=== PATIENT | male | born 1955 | race Two or more races ===

== ENCOUNTER 2017-07-06 06:55 | Inpatient (IN) | payer OTHER ==
[2017-07-06] MEDS ORDERED: ASPIRIN 81 MG PO STA (07:30)
[2017-07-06] MEDS ORDERED: NITROGLYCERIN OINT 1 INCH/GM PACKET TOPICAL STA (07:30)
--- NOTE | 2017-07-06 07:35 | ED ---
General Adult HPI - General Chief complaint: Chest Pain Stated complaint: Chest pain Time Seen by Provider: 07/06/17 07:00 Source: patient, RN notes reviewed Mode of arrival: wheelchair Limitations: no limitations - History of Present Illness Initial comments: This is a 61-year-old male with no significant past medical history. Patient states over the last week he has had 6 episodes of chest pain mostly associated with some exertion. Patient states episodes are usually only a few minutes but today's episode lasted about 10 minutes. Patient denies any radiation of the pain. Patient states the pain is centralized in his chest is a swallowed too much of something. Patient denies any difficulty swallowing. Patient denies any shortness of breath per patient denies any diaphoresis per patient denies any nausea. Patient denies any abdominal pain patient denies vomiting diarrhea. Patient denies any recent fever chills or cough. Patient denies any leg swelling. Patient denies any calf pain. Patient states been working out fairly aggressively since 2002. Patient states since the chest pain began he has worked out and not had any problems it usually occurred during the warm phases of his workout. Patient denies any family history of heart problems. - Related Data Home Medications Medication Instructions Recorded Confirmed Ibuprofen [Motrin Ib] 600 mg PO ONCE PRN 07/06/17 07/06/17 Allergies Allergy/AdvReac Type Severity Reaction Status Date / Time No Known Allergies Allergy Verified 07/06/17 07:26 Review of Systems ROS Statement: Those systems with pertinent positive or pertinent negative responses have been documented in the HPI. ROS Other: All systems not noted in ROS Statement are negative. Past Medical History Past Medical History: No Reported History History of Any Multi-Drug Resistant Organisms: None Reported Past Surgical History: Tonsillectomy Past Psychological History: No Psychological Hx Reported Smoking Status: Never smoker Past Alcohol Use History: Occasional Past Drug Use History: None Reported General Exam - General Exam Comments Initial Comments: GENERAL: Patient is well-developed and well-nourished. Patient is nontoxic and well- hydrated and is in no acute distress. ENT: Neck is soft and supple. No significant lymphadenopathy is noted. Oropharynx is clear. Moist mucous membranes. Neck has full range of motion without eliciting any pain. EYES: The sclera were anicteric and conjunctiva were pink and moist. Extraocular movements were intact and pupils were equal round and reactive to light. Eyelids were unremarkable. PULMONARY: Unlabored respirations. Good breath sounds bilaterally. No audible rales rhonchi or wheezing was noted. CARDIOVASCULAR: There is a regular rate and rhythm without any murmurs gallops or rubs. ABDOMEN: Soft and nontender with normal bowel sounds. No palpable organomegaly was noted. There is no palpable pulsatile mass. SKIN: Skin is clear with no lesions or rashes and otherwise unremarkable. NEUROLOGIC: Patient is alert and oriented x3. Cranial nerves II through XII are grossly intact. Motor and sensory are also intact. Normal speech, volume and content. Symmetrical smile. MUSCULOSKELETAL: Normal extremities with adequate strength and full range of motion. No lower extremity swelling or edema. No calf tenderness. LYMPHATICS: No significant lymphadenopathy is noted PSYCHIATRIC: Normal psychiatric evaluation. Normal interpersonal interactions appears functionally intact in deals appropriately with others. No signs of depression. No signs of anxiety. Limitations: no limitations Course Vital Signs 07/06/17 07/06/17 06:57 08:23 Temperature 98.2 F Pulse Rate 60 56 L Respiratory 18 16 Rate Blood Pressure 159/80 141/83 O2 Sat by Pulse 98 96 Oximetry Medical Decision Making - Medical Decision Making EKG shows sinus bradycardia 55 bpm ID interval is 176 dresses 90 QT interval 420 QTC is 41 per patient's EKG shows no ST segment elevation or depression. Patient has T-wave inversions in V1 and V2. Chest x-ray shows no acute abnormality. - Lab Data Result diagrams: 07/06/17 07:30 07/06/17 07:30 Lab Results 07/06/17 07/06/17 07/06/17 Range/Units 07:30 07:30 07:30 WBC 3.7 L (3.8-10.6) k/uL RBC 5.17 (4.30-5.90) m/uL Hgb 14.9 (13.0-17.5) gm/dL Hct 46.2 (39.0-53.0) % MCV 89.3 (80.0-100.0) fL MCH 28.9 (25.0-35.0) pg MCHC 32.3 (31.0-37.0) g/dL RDW 13.0 (11.5-15.5) % Plt Count 155 (150-450) k/uL Neutrophils % 54 % Lymphocytes % 33 % Monocytes % 8 % Eosinophils % 1 % Basophils % 0 % Neutrophils # 2.0 (1.3-7.7) k/uL Lymphocytes # 1.2 (1.0-4.8) k/uL Monocytes # 0.3 (0-1.0) k/uL Eosinophils # 0.0 (0-0.7) k/uL Basophils # 0.0 (0-0.2) k/uL PT (9.0-12.0) sec INR (<1.2) APTT (22.0-30.0) sec Sodium 146 H (137-145) mmol/L Potassium 5.3 H (3.5-5.1) mmol/L Chloride 107 (98-107) mmol/L Carbon Dioxide 30 (22-30) mmol/L Anion Gap 9 mmol/L BUN 14 (9-20) mg/dL Creatinine 0.77 (0.66-1.25) mg/dL Est GFR (CKD-EPI)AfAm >90 (>60 ml/min/1.73 sqM) Est GFR (CKD-EPI)NonAf >90 (>60 ml/min/1.73 sqM) Glucose 80 (74-99) mg/dL Calcium 9.7 (8.4-10.2) mg/dL Magnesium 1.9 (1.6-2.3) mg/dL Total Bilirubin 0.8 (0.2-1.3) mg/dL AST 29 (17-59) U/L ALT 39 (21-72) U/L Alkaline Phosphatase 49 (38-126) U/L Total Creatine Kinase 96 (55-170) U/L CK-MB (CK-2) 1.0 (0.0-2.4) ng/mL CK-MB (CK-2) Rel Index 1.0 Troponin I 0.022 (0.000-0.034) ng/mL Total Protein 6.6 (6.3-8.2) g/dL Albumin 4.0 (3.5-5.0) g/dL 07/06/17 Range/Units 07:30 WBC (3.8-10.6) k/uL RBC (4.30-5.90) m/uL Hgb (13.0-17.5) gm/dL Hct (39.0-53.0) % MCV (80.0-100.0) fL MCH (25.0-35.0) pg MCHC (31.0-37.0) g/dL RDW (11.5-15.5) % Plt Count (150-450) k/uL Neutrophils % % Lymphocytes % % Monocytes % % Eosinophils % % Basophils % % Neutrophils # (1.3-7.7) k/uL Lymphocytes # (1.0-4.8) k/uL Monocytes # (0-1.0) k/uL Eosinophils # (0-0.7) k/uL Basophils # (0-0.2) k/uL PT 10.6 (9.0-12.0) sec INR 1.1 (<1.2) APTT 26.3 (22.0-30.0) sec Sodium (137-145) mmol/L Potassium (3.5-5.1) mmol/L Chloride (98-107) mmol/L Carbon Dioxide (22-30) mmol/L Anion Gap mmol/L BUN (9-20) mg/dL Creatinine (0.66-1.25) mg/dL Est GFR (CKD-EPI)AfAm (>60 ml/min/1.73 sqM) Est GFR (CKD-EPI)NonAf (>60 ml/min/1.73 sqM) Glucose (74-99) mg/dL Calcium (8.4-10.2) mg/dL Magnesium (1.6-2.3) mg/dL Total Bilirubin (0.2-1.3) mg/dL AST (17-59) U/L ALT (21-72) U/L Alkaline Phosphatase (38-126) U/L Total Creatine Kinase (55-170) U/L CK-MB (CK-2) (0.0-2.4) ng/mL CK-MB (CK-2) Rel Index Troponin I (0.000-0.034) ng/mL Total Protein (6.3-8.2) g/dL Albumin (3.5-5.0) g/dL Disposition Clinical Impression: Chest pain Disposition: ADMITTED IP TO THIS HOSP Referrals: Lucas Swan MD [Primary Care Provider] - 1-2 days Time of Disposition: 08:59
[2017-07-06 07:53] LABS: Basophils % (A) 0 %; Eosinophils % (A) 1 %; HCT 46.2 % (39.0-53.0); HGB 14.9 gm/dL (13.0-17.5); Lymphocytes # (A) 1.2 k/uL (1.0-4.8); Lymphocytes % (A) 33 %; MCH 28.9 pg (25.0-35.0); MCHC 32.3 g/dL (31.0-37.0); MCV 89.3 fL (80.0-100.0); Mean Platelet Volume 9.2; Monocytes # (A) 0.3 k/uL (0-1.0); Monocytes % (A) 8 %; Neutrophils % (A) 54 %; Platelet Count 155 k/uL (150-450); RBC 5.17 m/uL (4.30-5.90); WBC 3.7 k/uL (3.8-10.6)
--- NOTE | 2017-07-06 08:03 | XR ---
EXAMINATION TYPE: XR chest 2V DATE OF EXAM: 07/06/2017 COMPARISON: NONE HISTORY: Chest pain TECHNIQUE: Frontal and lateral views of the chest are obtained. FINDINGS: There is no focal air space opacity, pleural effusion, or pneumothorax seen. The cardiac silhouette size is within normal limits. The osseous structures are intact. There are overlying car diac leads. IMPRESSION: No acute cardiopulmonary process.
[2017-07-06 08:04] LABS: INR 1.1 (<1.2); Partial Thromboplastin Time 26.3 sec (22.0-30.0); Prothrombin Time 10.6 sec (9.0-12.0)
[2017-07-06 08:07] LABS: ALT 39 U/L (21-72); AST 29 U/L (17-59); Alkaline Phosphatase 49 U/L (38-126); Anion Gap 9 mmol/L; Blood Urea Nitrogen 14 mg/dL (9-20); Calcium 9.7 mg/dL (8.4-10.2); Carbon Dioxide 30 mmol/L (22-30); Chloride 107 mmol/L (98-107); Glucose 80 mg/dL (74-99); Magnesium 1.9 mg/dL (1.6-2.3); Potassium 5.3 mmol/L (3.5-5.1); Sodium 146 mmol/L (137-145); Total Bilirubin 0.8 mg/dL (0.2-1.3); Total Protein 6.6 g/dL (6.3-8.2)
[2017-07-06 08:33] LABS: Troponin I 0.022 ng/mL (0.000-0.034)
[2017-07-06] MEDS ORDERED: NITROGLYCERIN SL TABS 0.4 MG TAB SUBLINGUAL PRN (09:00)
[2017-07-06] MEDS ORDERED: ALPRAZolam 0.5 MG TAB PO PRN (12:26)
[2017-07-06] MEDS ORDERED: ALPRAZolam 0.25 MG TAB PO PRN (12:26)
[2017-07-06] MEDS ORDERED: ATORVASTATIN 80 MG TAB PO STA (12:26)
[2017-07-06] MEDS ORDERED: SODIUM CHLORIDE 0.9% 1,000 ML in EMPTY BAG 1 BAG IV ONE (12:26)
[2017-07-06] MEDS ORDERED: HEPARIN SODIUM,PORCINE 5,000 UNIT/ML 1 ML VIAL IV PRN (12:29)
[2017-07-06] MEDS ORDERED: HEPARIN SODIUM,PORCINE 5,000 UNIT/ML 1 ML VIAL IV ONE (12:29)
[2017-07-06 13:26] LABS: Creatine Kinase MB 0.8 ng/mL (0.0-2.4); Troponin I 0.02 ng/mL (0.000-0.034)
[2017-07-06] MEDS: HEPARIN SOD,PORK IN 0.45% NACL 25,000 UNIT in 0.45% NACL 1 500ML.BAG IV SCH ×2 (13:27→18:37)
[2017-07-06] MEDS: NITROGLYCERIN OINT 1 INCH/GM PACKET TOPICAL SCH ×2 (13:29→22:11)
--- NOTE | 2017-07-06 14:56 | CONS ---
CONSULTATION Daniel Costello is a 61-year-old gentleman without significant past medical history. He has a risk factor profile that is very low. He does not take any medications. Has no allergies. Exercises regularly. For the last 1 week, he is experiencing what he describes as a nondescript symptoms of some chest tightness that seem to come on in a random fashion. He calls this uncomfortable feeling in the chest. It came on with exercise when he was doing some warm up for his regular workout that he does. This happened a few days ago and again he had a recurrence of these symptoms and therefore he came into the hospital. He has had 5 to 6 episodes, mostly associated with activity, but the quality of the pain is very sharp, atypical, almost central location without much radiation. No diaphoresis. At other times, he has done workout without any symptoms. However, at the time of my evaluation, he is resting comfortably without symptoms. PAST MEDICAL HISTORY: Unremarkable for any major medical problems. MEDICATIONS: None. ALLERGIES: None. REVIEW OF SYSTEMS: Unremarkable for any major medical issues. LABORATORY DATA: Revealed that initial troponin is 0.022. His other labs are normal. Potassium is slightly elevated at 5.3. His EKG revealed a sinus mechanism with very minor nonspecific precordial ST and T abnormality. PHYSICAL EXAMINATION: Blood pressure is 140/70, pulse rate is 60 per minute, regular. HEENT: Unremarkable. Fundus was not examined by me. NECK: Supple. No JVD. I do not hear a carotid bruit. There is no thyromegaly. Heart exam reveals S1, S2 heard normally without a rub, murmur or gallop. Lungs are clear. Abdomen is soft, nontender. Lower extremities reveal normal pulses, no edema, central nervous system is normal. EKG revealed sinus mechanism with minor nonspecific Anterior ST-T changes. RECOMMENDATION: I am recommending coronary angiography to rule out any obstructive CAD in a patient with ongoing symptoms for 1 week, almost always associated with physical activity and equivocal troponin level. Rationale, risks, benefits, options related to coronary angiography. I explained to the patient and . They understand all details and wished to proceed with the procedure. Thank you very much for the consult. MMODL / IJN: [id number] / BRIAN
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
[2017-07-06] MEDS ORDERED: IV FLUID CONTINUATION 700 ML IV ONE (16:31)
[2017-07-06] MEDS ORDERED: HEPARIN SODIUM 1,000 UN/ML (10ML VL) ONE (16:32)
[2017-07-06] MEDS ORDERED: LIDOCAINE 2% INJ 20 MG/ML (20 ML MDV) ONE (16:32)
[2017-07-06] MEDS ORDERED: MIDAZOLAM 2 MG/2 ML VIAL ONE (16:32)
[2017-07-06] MEDS ORDERED: VERAPAMIL 2.5 MG/ML 2 ML AMP ONE (16:33)
[2017-07-06] MEDS ORDERED: MIDAZOLAM 2 MG/2 ML VIAL IV ONE (16:35)
[2017-07-06] MEDS ORDERED: diphenhydrAMINE 50 MG/ML 1 ML VIAL ONE (16:37)
[2017-07-06] MEDS ORDERED: diphenhydrAMINE 50 MG/ML 1 ML VIAL IVP ONE (16:37)
[2017-07-06] MEDS: VERAPAMIL SYRINGE (5 MG/10 ML) INTRAARTER ONE ×2 (16:38→17:05)
[2017-07-06] MEDS ORDERED: LIDOCAINE 2% INJ 20 MG/ML SQ ONE (16:38)
[2017-07-06] MEDS ORDERED: METOPROLOL TARTRATE 5 MG/5 ML VIAL IVP ONE ×2 (16:59→17:02)
[2017-07-06] MEDS ORDERED: NITROGLYCERIN SL TABS 0.4 MG TAB SUBLINGUAL ONE ×2 (17:00→17:02)
[2017-07-06] MEDS ORDERED: IOHEXOL 350 MG/ML (PER ML) 100ML BTL INJ ONE ×2 (17:02)
[2017-07-06] MEDS ORDERED: RX INFO: IV CONTRAST WAS GIVEN 1 EACH MISC MISCELLANE PRN (17:16)
[2017-07-06] MEDS ORDERED: SODIUM CHLORIDE 0.9% 1,000 ML IV SCH (17:30)
[2017-07-06] MEDS ORDERED: MD COMMUNICATION TO PHARMACY 1 EACH MISC PO ONE ×4 (17:49→18:16)
[2017-07-06 18:03] VITALS: TEMP 97
[2017-07-06] MEDS ORDERED: HEPARIN SODIUM,PORCINE 5,000 UNIT/ML 1 ML VIAL IV SCH (19:00)
[2017-07-06 19:03] LABS: Basophils % (A) 0 %; Eosinophils % (A) 0 %; HCT 46.6 % (39.0-53.0); Lymphocytes % (A) 17 %; MCH 28.5 pg (25.0-35.0); MCHC 32.2 g/dL (31.0-37.0); MCV 88.4 fL (80.0-100.0); Mean Platelet Volume 9.4; Monocytes # (A) 0.3 k/uL (0-1.0); Monocytes % (A) 5 %; Neutrophils # (A) 4.3 k/uL (1.3-7.7); Neutrophils % (A) 77 %; Platelet Count 154 k/uL (150-450); RBC 5.28 m/uL (4.30-5.90); RDW 12.9 % (11.5-15.5); WBC 5.6 k/uL (3.8-10.6)
[2017-07-06 19:06] VITALS: RESP 18
[2017-07-06 19:13] LABS: ALT 34 U/L (21-72); AST 27 U/L (17-59); Alkaline Phosphatase 51 U/L (38-126); Anion Gap 13 mmol/L; Blood Urea Nitrogen 10 mg/dL (9-20); Calcium 9.6 mg/dL (8.4-10.2); Carbon Dioxide 26 mmol/L (22-30); Chloride 104 mmol/L (98-107); Glucose 151 mg/dL (74-99); Magnesium 1.7 mg/dL (1.6-2.3); Potassium 4.4 mmol/L (3.5-5.1); Sodium 143 mmol/L (137-145); Total Bilirubin 0.9 mg/dL (0.2-1.3); Total Protein 6.5 g/dL (6.3-8.2)
[2017-07-06 19:14] LABS: INR 1.2 (<1.2); Partial Thromboplastin Time 26.9 sec (22.0-30.0); Prothrombin Time 11.2 sec (9.0-12.0)
[2017-07-06 19:34] LABS: Creatine Kinase MB 0.5 ng/mL (0.0-2.4); Troponin I 0.018 ng/mL (0.000-0.034)
--- NOTE | 2017-07-06 20:08 | CC ---
CARDIAC CATHETERIZATION REPORT DATE OF SERVICE: 07/06/2017. PROCEDURE: Left heart catheterization, coronary angiography and left ventriculography from right radial approach. PERFORMED BY: Dr. Rachel Joshi. Moderate conscious sedation time was 27 minutes. Patient was monitored closely and he was given Versed and Benadryl combination. CLINICAL INFORMATION: Mr. Daniel Costello is a 61-year-old gentleman who came into the hospital with a 6-day history of ongoing exertional chest discomfort with 1 episode of probably a rest pain, although it seems to be more exertional than rest. He did not have any significant troponin elevation. Troponin was equivocal. He had EKG changes in the anterior leads, very subtle with ST-T abnormality, raising the possibility of ischemia. He was heparinized and advised coronary angiography, given his presentation and recent change in symptoms. Patient is quite active and does do quite a bit of physical activity and does not have any major risk factors. He is not a smoker, does not have any family history of premature CAD, has no hypertension or diabetes and does not take medications. PROCEDURE NOTE: Under local anesthesia and strict aseptic precautions, a 6-Turkish introducer was placed in the right radial artery. An Ultimate 1 catheter was used to perform selective coronary angiography of the left coronary artery. A standard 5-Turkish right Madhu catheter was used to perform selective coronary angiography of the right coronary artery. A pigtail catheter was used to check LV pressures. An LV-gram was performed in 30-degree AGUSTIN projection. The sheath was taken out and a TR band applied as per protocol. The saturation in the fingers of the right hand was 95%. Patient tolerated procedure well without complication. He also received heparin intravenously and also received heparin prior to the procedure. CARDIAC CATHETERIZATION FINDINGS: The left ventricle end-diastolic pressure was about 20 mmHg without any gradient across the aortic valve. CORONARY ANGIOGRAPHY FINDINGS: Right coronary artery: A very super dominant vessel, has a proximal 70% stenosis, eccentric and an almost ulcerated lesion distally. The caliber of the vessel improves and bifurcates into large PDA and PLV. RCA is a super dominant vessel with 70% proximal lesion. Left main coronary artery: This vessel has about a 40% distal lesion just before bifurcation. This bifurcates into LAD and circumflex. Left anterior descending coronary artery: This is a fair-caliber vessel, very proximally, gives off a diagonal branch which is small and then there is a 95% stenosis and just at the end of the stenotic segment, a major diagonal comes off and the LAD continues with moderate disease and then the caliber improves and it runs all the way to the apex to supply the inferoapical portion of left ventricle. The LAD and diagonal are both graftable vessels. The origin of the diagonal may also have some disease in it. Left posterior circumflex coronary artery: Technically nondominant vessel gives a single obtuse marginal. No significant disease, supplies a fair amount of myocardium. Left ventriculogram: This was performed in 30-degree AGUSTIN projection, revealed a left ventricle which is of normal size with excellent contractility. No mitral regurgitation. Ejection fraction is at least 65%. FINAL IMPRESSION: This patient has significant disease involving the proximal left anterior descending and also involving a major diagonal branch. This is a 95% stenosis. Right coronary artery has a 70% eccentric proximal stenosis of very super dominant vessel. Normal left ventricular function with elevated filling pressures. RECOMMENDATIONS: I am recommending aortocoronary bypass surgery to be performed urgently. The findings were reviewed with the patient. Films were reviewed with the patient, his and family members. His son, who is an anesthesiologist, also reviewed the pictures. The patient's son is considering transfer to [facility], where he works. For now, I will place him on IV heparin drip after the TR band is removed and also will place him on some statin, nitrates and beta blockers. I am recommending surgery in the next 48 hours. I also spoke to Dr. Garcia, who will be seeing the patient in the morning regarding surgery. MMODL / IJN: [id number] /
--- NOTE | 2017-07-06 20:14 | LTR ---
Dear Dr. Anaya: Thank you for the opportunity to participate in the care of Mr. Daniel Costello. Please find enclosed mid detailed cardiac cath report for your records. I am recommending aortocoronary bypass surgery for this patient. The patient's son is an anesthesiologist who is considering transfer to [facility]. We will keep you posted regarding further developments. Thank you for your referral and please call for questions. With kind regards. Sincerely, JOLANTA / CIERAN: [id number] /
--- NOTE | 2017-07-06 20:59 | US ---
EXAMINATION TYPE: US carotid duplex BILAT DATE OF EXAM: 07/06/2017 COMPARISON: NONE CLINICAL HISTORY: pre op CABG. Pre op CABG EXAM MEASUREMENTS: RIGHT: Peak Systolic Velocity (PSV) cm/sec ----- Right CCA: 85.3 ----- Right ICA: 74.3 ----- Right ECA: 117.9 ICA/CCA ratio: 0.9 RIGHT: End Diastole cm/sec ----- Right CCA: 18.2 ----- Right ICA: 24.2 ----- Right ECA: 15.3 LEFT: Peak Systolic Velocity (PSV) cm/sec ----- Left CCA: 77.1 ----- Left ICA: 91.4 ----- Left ECA: 57.0 ICA/CCA ratio: 1.2 LEFT: End Diastole cm/sec ----- Left CCA: 18.9 ----- Left ICA: 31.8 ----- Left ECA: 7.7 VERTEBRALS (direction of flow): Right Vertebral: Antegrade Left Vertebral: Antegrade Rhythm: Normal IMPRESSION: NO ELEVATED VELOCITIES; NO SIGNIFICANT STENOSIS.
[2017-07-06] MEDS ORDERED: METOPROLOL TARTRATE 12.5 MG TAB PO SCH (21:00)
[2017-07-06] MEDS ORDERED: MUPIROCIN 2% OINT 22 GM TUBE NASAL SCH (21:00)
[2017-07-06 23:57] VITALS: BP 183/88; PULSE 69
--- NOTE | 2017-07-07 07:47 | ECHOF ---
Referral Reason:chest pain MEASUREMENTS -------- HEIGHT: 182.9 cm WEIGHT: 87.1 kg BP: 157/91 RVIDd: 2.5 cm (< 3.3) IVSd: 1.0 cm (0.6 - 1.1) LVIDd: 5.6 cm (3.9 - 5.3) LVPWd: 1.1 cm (0.6 - 1.1) IVSs: 1.7 cm LVIDs: 3.4 cm LVPWs: 1.7 cm LAESV Index (A-L): 20.65 ml/m Ao Diam: 3.6 cm (2.0 - 3.7) AV Cusp: 2.2 cm (1.5 - 2.6) LA Diam: 2.0 cm (2.7 - 3.8) EPSS: 0.4 cm MV E Keith: 0.85 m/s MV DecT: 196 ms MV A Keith: 0.39 m/s MV E/A Ratio: 2.16 RAP: 5.00 mmHg RVSP: 9.88 mmHg MV EF SLOPE: 50.92 mm/s (70 - 150) MV EXCURSION: 1.65 cm (> 18.000) FINDINGS -------- Sinus rhythm. This was a technically good study. The left ventricular size is normal. There is borderline concentric left ventricular hypertrophy. Overall left ventricular systolic function is normal with, an EF between 55 - 60 %. The right ventricle is normal in size and function. Normal LA size by volume 22+/-6 ml/m2. The right atrium is normal in size. Aortic valve is trileaflet and is mildly thickened. There is mild aortic regurgitation. There is no evidence of aortic stenosis. The mitral valve leaflets are mildly thickened. There is trace to mild mitral regurgitation. Trace tricuspid regurgitation present. Right ventricular systolic pressure is normal at < 35 mmHg. There is no evidence of pulmonary hypertension. Trace/mild (physiologic) pulmonic regurgitation. The aortic root is borderline dilated up to 3.6 cm. Normal inferior vena cava with normal inspiratory collapse consistent with estimated right atrial pre ssure of 5 mmHg. The pericardium is normal. There is no pericardial effusion. CONCLUSIONS -------- 1. Sinus rhythm. 2. This was a technically good study. 3. The left ventricular size is normal. 4. There is borderline concentric left ventricular hypertrophy. 5. Overall left ventricular systolic function is normal with, an EF between 55 - 60 %. 6. Normal LA size by volume 22+/-6 ml/m2. 7. Aortic valve is trileaflet and is mildly thickened. 8. There is mild aortic regurgitation. 9. The mitral valve leaflets are mildly thickened. 10. There is trace to mild mitral regurgitation. 11. Trace tricuspid regurgitation present. 12. Right ventricular systolic pressure is normal at < 35 mmHg. 13. There is no evidence of pulmonary hypertension. 14. Trace/mild (physiologic) pulmonic regurgitation. 15. The aortic root is borderline dilated up to 3.6 cm. 16. There is no pericardial effusion. AGRICULTURAL RESEARCH TECHNICIAN: Pradip Emmanuel RDCS
[2017-07-07] MEDS ORDERED: ASPIRIN 325 MG TAB PO SCH (09:00)
[2017-07-07] MEDS ORDERED: ATORVASTATIN 80 MG TAB PO SCH (09:00)
[2017-07-07] MEDS ORDERED: ASPIRIN 81 MG PO SCH (09:00)
--- NOTE | 2017-07-07 16:48 | DS ---
DISCHARGE SUMMARY DATE OF ADMISSION: 07/06/2017 DATE OF DISCHARGE: 07/06/2017 FINAL DIAGNOSES: 1. Coronary artery disease with severe two-vessel disease including 95% LAD. 2. Sinus bradycardia, likely physiological. 3. IV heparin monitoring. PROCEDURE: Cardiac catheterization. HOSPITAL COURSE: This patient presented with chest pain and some EKG changes. Patient was taken to the Cardiac Reuse Technician. Found to have 95% LAD lesion and 70% RCA lesion. Evening, I spoke to the patient, his and patient's son. 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 He wanted the patient to get transferred there. I did talk to Dr. Fernando Joshi and got an okay from him and then I spoke to the transferring team at [facility], who accepted the patient. Paperwork was done. PHYSICAL EXAMINATION: Lungs are clear. CARDIOVASCULAR: First and second sounds are normal. Patient's potassium 4.4, BUN and creatinine normal. Patient's medications include IV heparin. Patient will be transferred to the Cardiothoracic Team at [facility]. Patient otherwise stable for transfer. REASON FOR TRANSFER: Higher level of care for urgent coronary bypass. Discharge planning more than 35 minutes. MMODL / IJN: [id number] /
--- NOTE | 2017-07-10 10:24 | P.ARTDOP ---
Arterial Doppler LOWER EXTREMITY ARTERIAL DOPPLER: DATE OF SERVICE: 07/06/2017 Reason for study: Preoperative CABG. Doppler waveforms: Multiphasic bilaterally throughout. Pulse volume recording: []. Pressure gradients: None. Ankle-brachial indices: Greater than 1 bilaterally. Toe pressures: [] on the right, [] on the left Impression: Normal study.
--- NOTE | 2017-07-10 10:26 | P.VSCSTY ---
Greater Saphenous Vein Mapping This is bilateral lower extremity greater saphenous vein mapping. Date of service 07/06/2017 Vein quality and ultrasound appearance no intraluminal thrombus or wall changes. Vein size groin right 9.7 x 8.5 groin left 9.2 x 7.9 High thigh right 8.0 x 7.2 high thigh left 6.3 x 5.5 Mid thigh right 5.5 x 4.9 mid thigh left 4.5 x 5.0 Above-knee right 4.2 x 4.3 above-knee left 3.6 x 3.9 Below knee right 4.1 x 3.7 below-knee left 4.4 x 3.9 Mid calf right 2.9 x 2.8 mid calf left 3.2 x 3.1 Ankle right 3.8 x 3.4 ankle left 3.9 x 3.0 Impression usable bilateral greater saphenous veins. Upper thigh vein fairly large bilaterally.
== END 2017-07-07 | disposition short-term general hospital (02) | DRG 287 ==
LOC: EC 06:55 → 3OBS 09:00 → 6SEL 17:11 → OBSVTOIN 17:16
PROVIDERS: ADMIT Hospitalist; ATTEND Hospitalist
PROC: B2151ZZ Fluoroscopy of Left Heart using Low Osmolar Contrast (ICD-10-PCS; principal; 2017-07-06 14:55)
PROC: 4A023N7 Measurement of Cardiac Sampling and Pressure, Left Heart, Percutaneous Approach (ICD-10-PCS; principal; 2017-07-06 14:55)
PROC: B2111ZZ Fluoroscopy of Multiple Coronary Arteries using Low Osmolar Contrast (ICD-10-PCS; principal; 2017-07-06 14:55)
DX: I25.10 Atherosclerotic heart disease of native coronary artery without angina pectoris (principal); R00.1 Bradycardia, unspecified; Z79.1 Long term (current) use of non-steroidal anti-inflammatories (NSAID); Z82.49 Family history of ischemic heart disease and other diseases of the circulatory system
CPT/HCPCS: 36415; 71046; 80053; 82550; 82553; 83735; 83880; 84443; 84484; 85025; 85610; 85730; 86850; 86900; 86901; 86920; 93005; 93306; 93458; 93880; 93922; 93970; 94150; 99285

== ENCOUNTER → 2017-08-31 | Outpatient (CLI) | payer OTHER ==
[2017-08-31 08:16] LABS: ALT 42 U/L (21-72); AST 24 U/L (17-59); Cholesterol 107 mg/dL (<200); Creatine Kinase 45 U/L (55-170); HDL Cholesterol 58 mg/dL (40-60); LDL Cholesterol,Calculated 39 mg/dL (0-99); Triglycerides 51 mg/dL (<150)
== END | disposition home or self-care (01) ==
LOC: LABWHC1 07:38
PROVIDERS: ATTEND Internal Medicine Interventional Cardiology
DX: E78.5 Hyperlipidemia, unspecified (principal); I25.10 Atherosclerotic heart disease of native coronary artery without angina pectoris
CPT/HCPCS: 36415; 80061; 82550; 84450; 84460

== ENCOUNTER 2023-09-04 15:19 | Emergency (ER) | payer BC, OTHER ==
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
[2023-09-04 16:16] VITALS: RESP 18
--- NOTE | 2023-09-04 16:54 | CT ---
EXAMINATION TYPE: CT brain wo con CT DLP: 1176.4 mGycm, Automated exposure control for dose reduction was used. DATE OF EXAM: 09/04/2023 4:18 PM COMPARISON: None. CLINICAL INDICATION:Male, 67 years old with history of head injury on thinners, pain after hit head o n table, pt on blood thinners TECHNIQUE: Brain: Axial CT images of the brain were obtained with coronal and sagittal reformats created and rev iewed. Contrast used: None. Oral contrast used: None. FINDINGS: Brain: Extra-axial spaces: No abnormal extra-axial fluid collections. Ventricular system: Within normal limits Cerebral parenchyma: No acute intraparenchymal hemorrhage or mass effect. The ellis-white junction is well differentiated. Cerebellum: Unremarkable. Mass effect: No evidence of midline shift. Intracranial vasculature: unremarkable Soft tissues: Normal. Calvarium/osseous structures: No depressed skull fracture. Paranasal sinuses and mastoid air cells: Near complete opacification of the right maxillary sinus. Visualized orbits: Orbital contents are intact. IMPRESSION: No acute intracranial process.
[2023-09-04 17:52] VITALS: BP 151/77; PULSE 59; TEMP 98.1
== END 2023-09-04 17:15 | disposition home or self-care (01) ==
LOC: EC 15:19
DX: S00.03XA Contusion of scalp, initial encounter (principal); I48.91 Unspecified atrial fibrillation; W01.10XA Fall on same level from slipping, tripping and stumbling with subsequent striking against unspecified object, initial encounter
CPT/HCPCS: 70450; 99283

== ENCOUNTER → 2023-11-12 | Outpatient (CLI) | payer MEDICARE | END | disposition home or self-care (01) | LOC: LABWHC1 11:10 | PROVIDERS: ATTEND Nurse Practitioner Family | DX: J30.89 Other allergic rhinitis (principal) | CPT/HCPCS: 36415 ==

== ENCOUNTER 2024-09-29 06:47 | Emergency (ER) | payer MEDICARE ==
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
[2024-09-29 07:30] LABS: Basophils # (A) 0.04 10*3/uL (0.00-0.10); Basophils % (A) 0.7 %; Eosinophils # (A) 0.12 10*3/uL (0.04-0.35); Eosinophils % (A) 2.2 %; HCT 38.9 % (39.6-50.0); HGB 13.4 g/dL (13.0-17.0); Lymphocytes # (A) 1.02 10*3/uL (0.90-5.00); MCH 30.9 pg (27.0-32.0); MCHC 34.4 g/dL (32.0-37.0); MCV 89.6 fL (80.0-97.0); Mean Platelet Volume 12.4 fL (9.5-12.2); Monocytes # (A) 0.41 10*3/uL (0.20-1.00); Monocytes % (A) 7.6 %; Neutrophils # (A) 3.77 10*3/uL (1.80-7.70); Neutrophils % (A) 70.3 %; Platelet Count 206 10*3/uL (140-440); RBC 4.34 10*6/uL (4.40-5.60); RDW 13.3 % (11.5-14.5); WBC 5.37 10*3/uL (4.50-10.00)
[2024-09-29 07:48] LABS: ALT 15 U/L (4-49); AST 21 U/L (17-59); African American GFR (CKD) >90 (>60 ml/min/1.73 sqM); Albumin 4.4 g/dL (3.5-5.0); Alkaline Phosphatase 67 U/L (38-126); Anion Gap 9 mmol/L; Blood Urea Nitrogen 12 mg/dL (9-20); Calcium 9.6 mg/dL (8.4-10.2); Carbon Dioxide 28 mmol/L (22-30); Chloride 101 mmol/L (98-107); Glucose 116 mg/dL (74-99); Non-African American GFR(CKD) >90 (>60 ml/min/1.73 sqM); Potassium 3.7 mmol/L (3.5-5.1); Sodium 138 mmol/L (137-145); Total Bilirubin 0.8 mg/dL (0.2-1.3); Total Protein 6.9 g/dL (6.3-8.2)
[2024-09-29 07:57] LABS: INR 1.2 (<1.2); Partial Thromboplastin Time 30.8 sec (22.0-30.0); Prothrombin Time 12.7 sec (10.0-12.5)
[2024-09-29 08:09] LABS: RBC,Urine >182 /hpf (0-5)
[2024-09-29 08:14] LABS: Appearance,Urine Bloody (Clear); Bilirubin,Urine NPN (Negative); Color,Urine Dark Red
[2024-09-29 08:59] VITALS: BP 148/74; PULSE 58; RESP 20; TEMP 98.1
== END 2024-09-29 09:32 | disposition home or self-care (01) ==
LOC: EC 06:47
DX: R33.9 Retention of urine, unspecified (principal); R31.9 Hematuria, unspecified
CPT/HCPCS: 36415; 51702; 80053; 81001; 85025; 85610; 85730; 99284

== ENCOUNTER 2024-09-29 15:42 | Emergency (ER) | payer MEDICARE ==
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
[2024-09-29] MEDS: MORPHINE SULFATE 4 MG/ML SYRINGE IM STA (18:00)
--- NOTE | 2024-09-29 19:08 | US ---
EXAMINATION TYPE: US renals and bladder DATE OF EXAM: 09/29/2024 COMPARISON: NONE CLINICAL INDICATION: Male, 68 years old with history of hematuria, pain; pt states aquablation last w [place]. states lower abd pain and clots of blood since 4am this morning TECHNIQUE: Grayscale imaging of the bilateral kidneys and urinary bladder: FINDINGS: EXAM MEASUREMENTS: Right Kidney: 11.0 x 4.5 x 3.8 cm Left Kidney: 11.7 x 5.3 x 4.5 cm Examination limited due to artifact from ribs and overlying bowel gas. Right Kidney: wnl as best seen Left Kidney: wnl as best seen Bladder: Decompressed. Chavez catheter visualized. Question of heterogeneous material within the decom pressed urinary bladder lumen. Nondiagnostic evaluation of the urinary bladder Bilateral Jets seen: unable to visualize Incidental findings: 1: 2.1 x 2.2 x 2.0cm anechoic area within the right posterior lobe of the liver compatible with a sim ple cyst 2. Prostatomegaly and prostate gland calcifications. There is no evidence for hydronephrosis at this point in time. No nephrolithiasis is seen. No gómez s are identified. IMPRESSION: 1. No evidence of hydronephrosis/acute obstructive uropathy. 2. Chavez catheter present and questionable heterogeneous material within the urinary bladder lumen, not well evaluated on this ultrasound study. Findings are indeterminate because of blood products. Co nsider outpatient CT urogram study if symptoms persist or as clinical warranted. 3. Likely prostatomegaly, correlation with PSA values. [facility], Workstation: [id number], 09/29/2024 7:06 PM
[2024-09-29] MEDS: HYDROmorphone 1 MG/ML 1 ML SYRINGE IM STA ×2 (20:25→22:06)
[2024-09-29 20:42] VITALS: PULSE 87; RESP 16; TEMP 97.7
[2024-09-29 22:12] VITALS: BP 128/67
== END 2024-09-29 22:09 | disposition home or self-care (01) ==
LOC: EC 15:42
DX: R31.9 Hematuria, unspecified (principal)
CPT/HCPCS: 99284; 96372 ×2; 51702; 51798; 76770; J2270; J1171